=== PATIENT | male | born 1980 | race Caucasian/White ===

== ENCOUNTER 2025-04-28 15:02 | Emergency (ER) | payer OTHER ==
[~2025-04-28] VITALS: Ht 180.3 cm; Wt 77.1 kg
[~2025-04-28 15:02] MED LIST: HYDACE10B PO; INCARCERATION; NAPR500 PO
[2025-04-28 15:04] VITALS: BP 118/96
[2025-04-28] MEDS ORDERED: FentaNYL Citrate 50 MCG/ML 2 ML Injection IV ONE ×2 (15:25→15:30)
[2025-04-28 15:36] LABS: BASOPHILS ABSOLUTE AUTO 0.05 K/mm3 (0.00-0.23); BASOPHILS PERCENT AUTO 1 % (0-2); EOSINOPHILS ABSOLUTE AUTO 0.06 K/mm3 (0.00-0.68); EOSINOPHILS PERCENT AUTO 1 % (0-6); Hematocrit 44.1 % (37.0-53.0); Hemoglobin 15.4 g/dL (13.5-17.5); IMMATURE GRAN ABSOLUTE AUTO 0.04 K/mm3 (0.00-0.10); IMMATURE GRAN PERCENT AUTO 0 % (0-1); LYMPHOCYTES ABSOLUTE AUTO 1.33 K/mm3 (0.84-5.20); LYMPHOCYTES PERCENT AUTO 13 % (21-46); MONOCYTES ABSOLUTE AUTO 0.85 K/mm3 (0.16-1.47); MONOCYTES PERCENT AUTO 8 % (4-13); Mean Corpuscular HGB Conc 34.9 g/dL (31.5-36.5); Mean Corpuscular Volume 92 fL (80-100); NEUTROPHILS ABSOLUTE AUTO 7.81 K/mm3 (1.96-9.15); NEUTROPHILS PERCENT AUTO 77 % (41-73); NRBC ABSOLUTE 0.00 K/mm3 (0.00-0.02); NRBC Auto 0.0 /100 WBC (0.0-0.2); Platelet Count 298 K/mm3 (150-400); RDW Coefficient Variation 12.5 % (11.7-14.2); RDW Standard Deviation 42.5 fL (35.1-46.3)
[2025-04-28 15:57] LABS: Alanine Aminotransfer (ALT/SGP 33.0 U/L (12-78); Albumin, Blood 4.0 g/dL (3.4-5.0); Albumin/Globulin Ratio 1.2 (0.8-1.8); Anion Gap 9.0 mmol/L (3-11); Aspartate Aminotrans (AST/SGOT 26.0 U/L (12-37); Bilirubin, Total 0.3 mg/dL (0.1-1.0); Blood Urea Nitrogen 17.0 mg/dL (8-24); CO2, Blood 23.0 mmol/L (21-32); Calcium, Blood 9.1 mg/dL (8.5-10.1); Chloride, Blood 108.0 mmol/L (98-108); Creatinine, Blood 0.82 mg/dL (0.60-1.20); Globulin, Blood 3.2 g/dL (2.2-4.0); Glucose, Blood 112.0 mg/dL (70-99); Potassium, Blood 3.8 mmol/L (3.5-5.5); Sodium, Blood 136.0 mmol/L (136-145); Total Protein, Blood 7.2 g/dL (6.4-8.2)
[2025-04-28] MEDS ORDERED: Tetracaine HCl/Pf 0.5% Opth Soln 4 ml LEFTEYE ONE (16:25)
[2025-04-28] MEDS ORDERED: Fluorescein Sod 1MG Opth Strips LEFTEYE ONE (16:25)
[2025-04-28] MEDS ORDERED: ERYT.5TO LEFTEYE (17:59)
[2025-04-28] MEDS ORDERED: Percocet 5-3251 EACH PO (17:59)
[2025-04-28] MEDS ORDERED: RX Prepack 2 Tabs Ondansetron ODT 4MG UD ONE (18:05)
[2025-04-28] MEDS ORDERED: Erythromycin 0.5% Opth Oint 1 gm LEFTEYE ONE (18:05)
[2025-04-28] MEDS ORDERED: RX Prepack 6 Tabs Oxycodone 5mg UD ONE (18:25)
== END 2025-04-28 18:50 | disposition home or self-care (01) ==
LOC: ER 15:02
PROVIDERS: Student in an Organized Health Care Education/Training Program
DX: S42.022A Displaced fracture of shaft of left clavicle, initial encounter for closed fracture (principal); T15.02XA Foreign body in cornea, left eye, initial encounter; F17.200 Nicotine dependence, unspecified, uncomplicated; V89.2XXA Person injured in unspecified motor-vehicle accident, traffic, initial encounter; Z88.0 Allergy status to penicillin
CPT/HCPCS: 29105; 70450; 72125; 73000; 73560-LT; 80053; 85025; 86850; 86900; 86901; 90471; 90715; 99285-25; A9270; J3010